=== PATIENT | male | born 2000 | race Caucasian/White ===

== ENCOUNTER 2025-03-31 09:48 | Inpatient (IN) | payer OTHER ==
[~2025-03-31] VITALS: Ht 185.4 cm; Wt 104.5 kg
[2025-03-31] MEDS ORDERED: ESTR1TAB17 PO (10:02)
[2025-03-31] MEDS ORDERED: SPIR50TA27 PO (10:02)
[2025-03-31 10:34] LABS: PLATELET COUNT (AUTO) 259 K/uL (150-450); RED BLOOD CELL COUNT(AUTO) 5.28 MIL/uL (4.50-5.90); RED CELL DISTRIBUTION WIDTH 13.1 % (11.5-14.5); WHITE BLOOD COUNT (AUTO) 11.4 K/uL (4.5-11.0)
[2025-03-31 10:41] LABS: CALCIUM, TOTAL 8.9 mg/dL (8.8-10.5); CREATININE 0.95 mg/dL (0.60-1.30); GLOMERULAR FILTR. RATE CALC > 60 mL/min (>60); GLUCOSE,RANDOM 97 mg/dL (70-110); SODIUM SERUM 134 mmol/L (136-145); UREA NITROGEN, BLOOD 14 mg/dL (7-18)
[2025-03-31 11:03] LABS: APPEARANCE,URINE CLEAR (CLEAR); GLUCOSE, URINE (UA) NEGATIVE (NEGATIVE); LEUKOCYTE ESTERASE ,URINE NEGATIVE (NEGATIVE); NITRATE,URINE NEGATIVE (NEGATIVE); OCCULT BLOOD,URINE NEGATIVE (NEGATIVE); SPECIFIC GRAVITIY, URINE 1.017 (1.003-1.030)
[2025-03-31] MEDS ORDERED: SODIUM CHLORIDE 0.9% 100 ML ONE (13:37)
[2025-03-31] MEDS ORDERED: 0.9% SODIUM CHLORIDE 10 ML SYRINGE IVP ONE (13:37)
[2025-03-31] MEDS ORDERED: IOHEXOL 350 MG/ML 100 ML VIAL ONE (13:37)
[2025-03-31 14:02] LABS: ASPARTATE AMINOTRANSFERASE 16.0 U/L (15-37); TOTAL PROTEIN, SERUM 7.2 g/dL (6.4-8.2)
[2025-03-31] MEDS: IOHEXOL 9 MG/ML 500 ML BOTTLE PO ONE (14:02)
[2025-03-31] MEDS: MORPHINE SULFATE 4 MG/ML VIAL IVP ONE (14:02)
[2025-03-31] MEDS: ONDANSETRON HCL 4 MG/2 ML VIAL IVP ONE (14:02)
[2025-03-31] MEDS: SODIUM CHLORIDE 0.9% 2,000 ML IV ONE (14:02)
[2025-03-31] MEDS: SODIUM CHLORIDE 0.9% 1,000 ML IV ONE (16:45)
[2025-03-31] MEDS: PIPERACILLIN/TAZO 3.375 GM/D5W 50 ML IV ONE (17:08)
[2025-03-31] MEDS ORDERED: ONDANSETRON HCL 4 MG/2 ML VIAL IVP PRN (20:15)
[2025-03-31] MEDS ORDERED: NALOXONE HCL 1 MG/ML 2 ML SYRINGE IVP PRN (20:15)
[2025-03-31] MEDS ORDERED: MORPHINE SULFATE 4 MG/ML VIAL IVP PRN (20:15)
[2025-03-31] MEDS ORDERED: ACETAMINOPHEN 325 MG TABLET PO PRN (20:15)
[2025-03-31] MEDS: DOCUSATE SODIUM 100 MG CAPSULE PO SCH (21:00)
[2025-03-31 21:31] VITALS: BP 116/68; PULSE 79; RESP 18; TEMP 98.4; O2SAT 97
[2025-04-01] MEDS: HEPARIN SODIUM,PORCINE 5,000 UNITS/ML VIAL SQ SCH
[2025-04-01] MEDS: PIPERACILLIN/TAZO 3.375 GM/D5W 50 ML IV SCH (00:14)
[2025-04-01 04:00] VITALS: BP 100/59; PULSE 83; RESP 18; TEMP 97.5; O2SAT 100
[2025-04-01 06:48] LABS: PLATELET COUNT (AUTO) 193 K/uL (150-450); RED BLOOD CELL COUNT(AUTO) 4.43 MIL/uL (4.50-5.90); RED CELL DISTRIBUTION WIDTH 12.9 % (11.5-14.5); WHITE BLOOD COUNT (AUTO) 9.3 K/uL (4.5-11.0)
[2025-04-01 07:16] LABS: CALCIUM, TOTAL 7.8 mg/dL (8.8-10.5); CREATININE 0.80 mg/dL (0.60-1.30); GLOMERULAR FILTR. RATE CALC > 60 mL/min (>60); GLUCOSE,RANDOM 80 mg/dL (70-110); SODIUM SERUM 135 mmol/L (136-145); UREA NITROGEN, BLOOD 10 mg/dL (7-18)
[2025-04-01 08:31] VITALS: BP 109/64; PULSE 68; RESP 18; TEMP 98.2; O2SAT 98
[2025-04-01] MEDS: SODIUM CHLORIDE 0.45% 1,000 ML IV SCH (10:44)
[2025-04-01] MEDS: PEG 3350/NA SULF,BICARB,CL/KCL 4000 ML SOLUTION PO ONE (19:51)
[2025-04-01 20:09] VITALS: BP 118/70; PULSE 66; RESP 18; TEMP 97.9; O2SAT 97
[2025-04-02 05:01] VITALS: BP 110/67; PULSE 60; RESP 18; TEMP 98.1; O2SAT 100
[2025-04-02] MEDS ORDERED: PROPOFOL 1% ISO-OSM 1000 MG/100 ML BOTTLE ONE (07:59)
[2025-04-02] MEDS ORDERED: SODIUM CHLORIDE 0.9% 1,000 ML ONE (08:26)
[2025-04-02 08:30] VITALS: BP 113/61; PULSE 65; RESP 18; TEMP 98.1; O2SAT 98
[2025-04-02] MEDS: SODIUM CHLORIDE 0.9% 1,000 ML IV ONE (11:28)
[2025-04-02 16:04] VITALS: BP 125/70; PULSE 71; RESP 18; TEMP 98.2; O2SAT 99
[2025-04-02] MEDS ORDERED: AMOX-457 PO (17:04)
== END 2025-04-02 19:30 | disposition home or self-care (01) | DRG 392 ==
LOC: EMS 09:48 → EDH 20:02 → 6S 21:22
PROVIDERS: ADMIT Internal Medicine; ATTEND Internal Medicine
PROC: 0DBE8ZX Excision of Large Intestine, Via Natural or Artificial Opening Endoscopic, Diagnostic (ICD-10-PCS; 2025-04-02)
PROC: 0DBB8ZX Excision of Ileum, Via Natural or Artificial Opening Endoscopic, Diagnostic (ICD-10-PCS; principal; 2025-04-02 12:05)
DX: K52.9 Noninfective gastroenteritis and colitis, unspecified (principal); E87.1 Hypo-osmolality and hyponatremia; K50.90 Crohn's disease, unspecified, without complications; F64.0 Transsexualism; Z79.899 Other long term (current) drug therapy
CPT/HCPCS: 71045; 74177; 80048; 80076; 81003; 83690; 83735; 85025; 87081; 88305; 96361; 96365; 96375; 99285; J1644; J2270; J2405; J2543; J2704; J7030; J7050; 36415-L1; 36415-TC